=== PATIENT | female | born 1960 | race Caucasian/White ===

== ENCOUNTER 2019-03-30 16:31 | Emergency (ER) | payer OTHER, BC ==
[2019-03-30 17:40] VITALS: BP 134/79
--- NOTE | 2019-03-30 18:30 | UC ---
Lower Extremity/Ankle HPI - HPI Summary HPI Summary: Pt presents with c/o of left lower leg and foot swelling and bruising of foot. Pt denies any injury. 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 - History of Current Complaint Chief Complaint: UCLowerExtremity Stated Complaint: SWOLLEN AND BRUISED LEFT FOOT Time Seen by Provider: 03/30/19 18:21 Hx Obtained From: Patient ?: No Onset/Duration: Gradual Onset, Lasting Days, Still Present, Worse Since - onset Severity Initially: Mild Severity Currently: Moderate Pain Intensity: 0 Aggravating Factor(s): Standing Alleviating Factor(s): Rest, Elevation Able to Bear Weight: Yes - Risk Factors Gout Risk Factors: Age Over 40, Obesity DVT Risk Factors: Negative Septic Arthritis Risk Factor: Negative - Allergies/Home Medications Allergies/Adverse Reactions: Allergies Allergy/AdvReac Type Severity Reaction Status Date / Time Penicillins Allergy Rash Verified 03/30/19 17:33 Home Medications: Home Medications Aspirin 81 mg CHEW TAB* [Aspirin Low Dose TAB*] 81 mg PO DAILY 03/30/19 [ History Confirmed 03/30/19] Calcium Carbonate [Calcium/C/D] 1 chw PO DAILY 03/30/19 [History Confirmed 03/30] Inulin/Chromium Picolinate [Fiber Gummies] 1 each PO DAILY 03/30/19 [History Confirmed 03/30/19] Vitamin C/Biotin [Hair, Skin and Nails Gummies] 1 each PO DAILY 03/30/19 [ History Confirmed 03/30/19] Vitamin THERAPEUTIC TAB* [Theragran TAB*] 1 tab PO DAILY 03/30/19 [History Confirmed 03/30/19] PMH/Surg Hx/FS Hx/Imm Hx Previously Healthy: Yes - Surgical History Surgical History: Yes Surgery Procedure, Year, and Place: Gastric Bypass, 2016, [place] - Family History Known Family History: Positive: Cardiac Disease - Social History Occupation: Employed Full-time Lives: With Family Alcohol Use: None Substance Use Type: None Smoking Status (MU): Never Smoked Tobacco Have You Smoked in the Last Year: No - Immunization History Vaccination Up to Date: Yes Review of Systems All Other Systems Reviewed And Are Negative: Yes Constitutional: Positive: Negative Skin: Positive: Bruising - left foot Eyes: Positive: Negative ENT: Positive: Negative Respiratory: Positive: Negative Cardiovascular: Positive: Negative Gastrointestinal: Positive: Negative Genitourinary: Positive: Negative Motor: Positive: Negative Neurovascular: Positive: Negative Musculoskeletal: Positive: Edema - left lower extremity Neurological: Positive: Negative Psychological: Positive: Negative Is Patient Immunocompromised?: No Physical Exam Triage Information Reviewed: Yes Appearance: Well-Appearing Vital Signs: Initial Vital Signs Temp 98.2 F 03/30/19 17:31 Pulse 52 03/30/19 17:31 Resp 18 03/30/19 17:31 BP 134/79 03/30/19 17:31 Pulse Ox 96 03/30/19 17:31 Vital Signs Reviewed: Yes Eye Exam: Normal ENT Exam: Normal ENT: Positive: Hearing grossly normal Neck exam: Normal Respiratory: Positive: No respiratory distress Musculoskeletal: Positive: Edema @ - left lower extremity, non pitting, Neurological Exam: Normal Psychological Exam: Normal Skin Exam: Other - 2-4 bruises scattered on left foot. Lower Extremity Course/Dx - Differential Dx/Diagnosis Differential Diagnosis/HQI/PQRI: Cellulitis, Gout Provider Diagnosis: Leg edema, left Discharge ED - Sign-Out/Discharge Documenting (check all that apply): Patient Departure All imaging exams completed and their final reports reviewed: No Studies - Discharge Plan Condition: Stable Disposition: HOME Patient Education Materials: Leg Edema (ED) Referrals: Jose Rosales NP [Primary Care Provider] - If Needed Additional Instructions: Please follow up with your PCP as needed. Please wear supportive hose while standing for prolonged periods of time. - Billing Disposition and Condition Condition: STABLE Disposition: Home
== END 2019-03-30 18:44 | disposition home or self-care (01) ==
LOC: UCCORT 16:31
DX: R60.9 Edema, unspecified (principal); Z98.84 Bariatric surgery status
CPT/HCPCS: 99201; G0463